=== PATIENT | female | born 1965 | race Caucasian/White ===

== ENCOUNTER 2017-10-01 08:32 | Emergency (ER) | payer BC ==
[2017-10-01 08:49] VITALS: BP 115/86
--- NOTE | 2017-10-01 08:54 | UC ---
Throat Pain/Nasal Cory HPI - HPI Summary HPI Summary: Pt presents with congestion and sore throat x 3 days. Pt state she thought it was her allergies. This am had a temp 100.4 - so wanted to be checked for strep. Pt did not take any med for fever. Has has been taking zyrtec and allergy vaccination. Pt does not take decongestant. Pt has been using Afrin - today is day #3 - pt report temp relief. 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 No known strep however Pt just completed period Pt's medications reviewed this visit. - History of Current Complaint Chief Complaint: UCRespiratory Stated Complaint: ST/FEVER/COUGH Time Seen by Provider: 10/01/17 08:51 Hx Obtained From: Patient Hx Last Menstrual Period: 04/2013 Onset/Duration: Gradual Onset Severity: Mild Pain Intensity: 2 Pain Scale Used: 0-10 Numeric Related History: Seasonal Allergies - Allergies/Home Medications Allergies/Adverse Reactions: Allergies Allergy/AdvReac Type Severity Reaction Status Date / Time sulfamethoxazole Allergy Rash Verified 10/01/17 08:43 [From Bactrim] trimethoprim [From Bactrim] Allergy Rash Verified 10/01/17 08:43 PMH/Surg Hx/FS Hx/Imm Hx Previously Healthy: Yes - Surgical History Surgical History: Yes Surgery Procedure, Year, and Place: Hysterectomy, 2012. Bladder Sling, 2008. C -Sections, 1997 2000 - Family History Known Family History: Positive: None - Social History Occupation: Employed Full-time Lives: With Family Alcohol Use: None Substance Use Type: None Smoking Status (MU): Former Smoker Type: Cigarettes Amount Used/How Often: Some Day Smoker Have You Smoked in the Last Year: No When Did the Patient Quit Smoking/Using Tobacco: 1984 - Immunization History Most Recent Influenza Vaccination: February 2014 Review of Systems Constitutional: Negative Skin: Negative Eyes: Negative ENT: Ear Ache, Sinus Congestion Respiratory: Negative Cardiovascular: Negative All Other Systems Reviewed And Are Negative: Yes Physical Exam Triage Information Reviewed: Yes Appearance: Well-Appearing, Well-Nourished, Other: - nasal congestion Vital Signs: Initial Vital Signs Temp 98.6 F 10/01/17 08:45 Pulse 86 10/01/17 08:45 Resp 18 10/01/17 08:45 BP 115/86 10/01/17 08:45 Pulse Ox 100 10/01/17 08:45 Vital Signs Reviewed: Yes Eye Exam: Normal Eyes: Positive: Conjunctiva Clear ENT: Positive: Other - right TM wnl left TM - obscurred by cerumen turbinates inflammed and boggy + yellow secretion no exudate, erythema uvula midline Dental Exam: Normal Neck exam: Normal Neck: Positive: Supple, Nontender, No Lymphadenopathy Respiratory Exam: Normal Respiratory: Positive: Chest non-tender, Lungs clear, Normal breath sounds, No respiratory distress, No accessory muscle use Cardiovascular Exam: Normal Cardiovascular: Positive: RRR, No Murmur, Pulses Normal Abdominal Exam: Normal Abdomen Description: Positive: Nontender Bowel Sounds: Positive: Present Musculoskeletal Exam: Normal Musculoskeletal: Positive: Strength Intact Neurological Exam: Normal Neurological: Positive: Alert Psychological: Positive: Normal Response To Family Skin Exam: Normal Throat Pain/Nasal Course/Dx - Course Course Of Treatment: pt with sore throat, congestion, PND x 3 days. pt reports temp this morning -self resolved. pt with neg strep throat. Pt with left cerumen impaction. will irrigate. recommend flonase. decongestion. motrin/ apap. secretion precaution. return precaution. pt comfortable and in agreement with plan - Differential Dx/Diagnosis Provider Diagnoses: allergic rhinitis. URI. cerumen impaction, left Discharge - Sign-Out/Discharge Documenting (check all that apply): Discharge/Admit/Transfer - Discharge Plan Condition: Stable Disposition: HOME Patient Education Materials: Allergic Rhinitis (ED), Pharyngitis (ED), Cerumen Impaction (ED) Referrals: Radha Cleary MD [Primary Care Provider] - Additional Instructions: - Stay well hydrated. Drink plenty of non-alcoholic, non-caffinated beverages. - Alternate ibuprofen (Advil, Motrin) 600mg and Tylenol every 3 hours for pain or fever. Take with food. Do NOT take for more than 4-5 days. - These infections are spread by secretions - do NOT share eating or drinking utensils - clean items you share with other people such as cell phones, computer mouse, TV remote, computer tablets,etc. Once you start to feel better, change your toothbrush and your pillowcase. - okay to take over the counter decongestant and cough medication - get plenty of restful sleep. - it is recommended you take nasal spray as instructed - okay to take over the counter decongestant with your other meds - contact your doctor or return with questions or concerns - Billing Disposition and Condition Condition: STABLE Disposition: HOME
== END 2017-10-01 09:37 | disposition home or self-care (01) ==
LOC: UCCORT 08:32
DX: J30.9 Allergic rhinitis, unspecified (principal); J06.9 Acute upper respiratory infection, unspecified; H61.22 Impacted cerumen, left ear; Z87.891 Personal history of nicotine dependence; Z88.2 Allergy status to sulfonamides
CPT/HCPCS: 87651; 99213; G0463

== ENCOUNTER 2018-02-06 13:37 | Emergency (ER) | payer BC ==
--- OUTSIDE RECORDS SUMMARY | 2018-02-06 15:39 | XMS REPORT ---
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 Payers Type Date Identification Numbers Payment Provider Subscriber Commercial Policy Number: [id number] [facility] Commercial Christie Hoover PayID: [id number] [address] [address] [place] [address] Problems Date Description Provider Status Onset: 06/21/2005 Generalized anxiety disorder Radha Cleary MD Active Onset: 11/09/2004 Premenstrual tension syndrome Radha Cleary MD Active Onset: 11/09/2004 Migraine without aura, not refractory Radha Cleary MD Active Onset: 11/09/2004 Allergic rhinitis due to pollen Gregory Cortes DO Active Onset: 04/11/2017 Mild intermittent asthma Radha Cleary MD Active Family History Date Family Member(s) Problem(s) Comments Mother Thyroid Disease Maternal Grandmother Cancer, Colon Social History Type Date Description Comments Marital Status Lives With Son lives with her half of the week Lives With Alone 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 ETOH Use Occasionally consumes alcohol Smoking Patient is a former smoker General Hx Text Allergies, Adverse Reactions, Alerts Date Description Reaction Status Severity Comments 06/18/2014 Bactrim active Medications Medication Date Status Form Strength Qnty SIG Indications Ordering Provider Azithromycin 02/01 Hx Tablets 250mg 6tabs 2 tablets J01.90 Frank by mouth Alfredo, - on day 1 DO 02/06 then tablet on days 2-5 Buspirone HCL 07/05 Active Tablets 10mg 90tab 1 by mouth F41.1 s doug Garcia MD times a day Proair HFA Active Aerosol 108(90Bas 2 puffs Unknown /0000 e) every 4 mcg/Act hours as needed for cough or sob Fluconazole 04/11 Hx Tablets 150mg 1tabs 1 by mouth N76.0 x 1 dose MD Radha - 07/05 Buspirone HCL 04/11 Hx Tablets 10mg 30tab 1 po every F41.1 s hs MD Radha - 07/05 Azithromycin 09/24 Hx Tablets 250mg 6tabs 2 by mouth J06.9 Digiovann /2016 on day 1 a, - and 1 by Dee Dee, 04/11 mouth day 2-5 Azithromycin 07/15 Hx Tablets 250mg 6tabs 2 by mouth J01.90 Radha duong MD - then 1 by 09/20 daily x 4 more days Phenazopyridine 05/21 Hx Tablets 200mg 6tabs 1 by mouth R30.0 Digiovann HCL three a, - times a Dee Dee, 05/23 day for 2 days Diflucan 08/29 Hx Tablets 150mg 1tabs 1 by mouth x 1 dose MD Radha - 08/30 Azithromycin 06/18 Hx Tablets 250mg 6tabs 2 by mouth 461.8 todayRadha MD - then 1 by 06/23 daily x 4 more days Azithromycin 09/27 Hx Tablets 250mg 6tabs 2 tabs po x 1 dose MD Radha - on the 06/18 first day of treatment, then 1 tab po daily x 4 days. Nasonex 09/27 Hx Suspension 50mcg/Act 51gm 2 sprays alma Garcia MD - nostril qd 02/05 Ventolin HFA 07/05 Hx Aerosol 108mcg/Ac 3unit 2 puffs t s q4h prn MD Radha - 07/05 Sumatriptan 11/07 Hx Tablets 50mg 9tabs take 1 Evin tablet by MD Radha - mouth 02/05 every hours if needed Meclizine HCL 01/08 Hx Tablets 25mg 50tab 1 po qid Sebastian s aquiles Jenkins, - dizziness DO 02/05 Montelukast 10/05 Hx Tablets 10mg 90tab 1 po qhs Evin raysa Garcia MD - 07/15 Immunizations CPT Code Status Date Vaccine Reaction Lot # [id number] Given 02/14/2017 Afluria Imunization 34489 Given 02/08/2014 Afluria Or Fluvirin Flu Vac Intramuscular 17607 Given 06/22/2012 Tdap (Adacel) Ages 7 And Above Only VIS DATE 80410 Given 01/06/2012 Afluria Or Fluvirin Flu Vac Intramuscular 14076 Given 02/23/2010 Afluria Or Fluvirin Flu Vac Intramuscular 84960 Given 04/24/2009 Afluria Or Fluvirin Flu Vac Intramuscular 23932 Given 03/31/2005 Afluria Or Fluvirin Flu Vac Intramuscular 44216 Given 03/31/2005 Afluria Or Fluvirin Flu Vac Intramuscular 92477 Given 05/16/1996 Tetanus And Diptheria Toxoids For Adult Use-preservative free Vital Signs Date Vital Result Comment 02/01/2018 Body Temperature 99.0 F Weight 118.00 lb Heart Rate 72 /min BP Systolic 120 mmHg BP Diastolic 72 mmHg Respiratory Rate 18 /min Height 62 inches 5'2" BMI (Body Mass Index) 21.6 kg/m2 07/05/2017 Weight 125.00 lb Heart Rate 76 /min BP Systolic 120 mmHg BP Diastolic 68 mmHg Respiratory Rate 18 /min Height 62 inches 5'2" (07/15/16 BMI (Body Mass Index) 22.9 kg/m2 04/11/2017 Weight 133.00 lb Heart Rate 76 /min BP Systolic 112 mmHg BP Diastolic 78 mmHg Respiratory Rate 18 /min Height 62 inches 5'2" (07/15/16 BMI (Body Mass Index) 24.3 kg/m2 09/20/2016 Body Temperature 98.5 F Weight 123.00 lb Heart Rate 72 /min BP Systolic 120 mmHg BP Diastolic 78 mmHg Respiratory Rate 18 /min Height 62 inches 5'2" (07/15/16 BMI (Body Mass Index) 22.5 kg/m2 07/15/2016 Body Temperature 99.1 F Weight 120.00 lb Heart Rate 76 /min BP Systolic 130 mmHg BP Diastolic 70 mmHg Respiratory Rate 18 /min Height 62 inches 5'2" (07/15/16 O2 % BldC Oximetry 98 % BMI (Body Mass Index) 21.9 kg/m2 04/01/2016 Weight 120.00 lb Heart Rate 76 /min BP Systolic 122 mmHg BP Diastolic 70 mmHg Respiratory Rate 18 /min Height 62 inches 5'2" (02/06/16) BMI (Body Mass Index) 21.9 kg/m2 02/06/2016 Body Temperature 97.9 F Weight 118.00 lb Heart Rate 66 /min BP Systolic 120 mmHg BP Diastolic 76 mmHg Respiratory Rate 18 /min Height 62 inches 5'2" (02/06/16) BMI (Body Mass Index) 21.6 kg/m2 05/21/2015 Body Temperature 98.9 F Weight 119.00 lb Heart Rate 78 /min BP Systolic 112 mmHg BP Diastolic 70 mmHg Respiratory Rate 18 /min Height 62.25 inches 5'2.25" BMI (Body Mass Index) 21.6 kg/m2 06/18/2014 Body Temperature 100.5 F Weight 122.00 lb Heart Rate 100 /min BP Systolic 120 mmHg BP Diastolic 80 mmHg Respiratory Rate 18 /min Height 62.25 inches 5'2.25" O2 Saturation Level with Exercise 96 % BMI (Body Mass Index) 22.1 kg/m2 09/27/2013 Body Temperature 99.7 F Weight 125.00 lb Heart Rate 87 /min BP Systolic 118 mmHg BP Diastolic 70 mmHg Respiratory Rate 18 /min Height 62.25 inches 5'2.25" 09/21/2013 Weight 125.00 lb Heart Rate 74 /min BP Systolic 110 mmHg BP Diastolic 80 mmHg Respiratory Rate 18 /min Height 62.25 inches 5'2.25" 07/05/2013 Weight 127.00 lb Heart Rate 76 /min BP Systolic 100 mmHg BP Diastolic 72 mmHg Respiratory Rate 16 /min Height 62.25 inches 5'2.25" 03/26/2013 Weight 120.00 lb Heart Rate 68 /min BP Systolic 122 mmHg BP Diastolic 82 mmHg Respiratory Rate 16 /min Height 62.25 inches 5'2.25" (Done On 05/25/12) 01/02/2013 Weight 126.00 lb Heart Rate 76 /min BP Systolic 110 mmHg BP Diastolic 70 mmHg Respiratory Rate 16 /min Height 62.25 inches 5'2.25" (Done On 05/25/12) 11/22/2012 Weight 122.00 lb Heart Rate 72 /min BP Systolic 100 mmHg BP Diastolic 72 mmHg Respiratory Rate 16 /min Height 62.25 inches 5'2.25" (Done On 05/25/12) 11/07/2012 Heart Rate 64 /min BP Systolic 120 mmHg BP Diastolic 80 mmHg Respiratory Rate 16 /min Height 62.25 inches 5'2.25" (Done On 05/25/12) 10/12/2012 Weight 121.00 lb Heart Rate 88 /min BP Systolic 106 mmHg BP Diastolic 80 mmHg Respiratory Rate 16 /min Height 62.25 inches 5'2.25" (Done On 05/25/12) 07/20/2012 Weight 115.00 lb Heart Rate 72 /min BP Systolic 110 mmHg BP Diastolic 70 mmHg Respiratory Rate 16 /min Height 62.25 inches 5'2.25" (Done On 05/25/12) 06/22/2012 Weight 119.00 lb Heart Rate 80 /min BP Systolic 120 mmHg BP Diastolic 70 mmHg Respiratory Rate 16 /min Height 62.25 inches 5'2.25" (Done On 05/25/12) 05/25/2012 Weight 123.00 lb Heart Rate 68 /min BP Systolic 126 mmHg BP Diastolic 80 mmHg Respiratory Rate 16 /min Height 62.25 inches 5'2.25" 05/04/2012 Body Temperature 100.4 F Weight 122.00 lb Heart Rate 88 /min BP Systolic 112 mmHg BP Diastolic 72 mmHg Respiratory Rate 18 /min Height 62.5 inches 5'2.50" (Done On 02/14/12) O2 % BldC Oximetry 97 % 05/02/2012 Body Temperature 98.6 F Weight 123.19 lb Heart Rate 90 /min BP Systolic 122 mmHg BP Diastolic 86 mmHg Respiratory Rate 16 /min Height 62.5 inches 5'2.50" 02/2012 O2 % BldC Oximetry 99 % 02/14/2012 Body Temperature 99.1 F Weight 122.38 lb Heart Rate 72 /min BP Systolic 116 mmHg BP Diastolic 80 mmHg Respiratory Rate 18 /min Height 62.5 inches 5'2.50" 02/201208/05/2010 Weight 139.00 lb Heart Rate 68 /min BP Systolic 120 mmHg BP Diastolic 80 mmHg Respiratory Rate 16 /min Height 62.25 inches 5'2.25" 06/24/2010 Body Temperature 99.6 F Was 102 At Home Took Motrin Weight 143.00 lb Heart Rate 80 /min BP Systolic 112 mmHg BP Diastolic 70 mmHg Respiratory Rate 14 /min 03/27/2010 Body Temperature 97.9 F Weight 146.00 lb Heart Rate 88 /min BP Systolic 124 mmHg BP Diastolic 86 mmHg Respiratory Rate 18 /min 02/23/2010 BP Systolic 102 mmHg BP Diastolic 70 mmHg 02/23/2010 Weight 143.00 lb Heart Rate 68 /min BP Systolic 128 mmHg BP Diastolic 82 mmHg Respiratory Rate 16 /min 11/14/2009 Heart Rate 68 /min BP Systolic 102 mmHg BP Diastolic 70 mmHg Respiratory Rate 16 /min 10/15/2009 Weight 140.00 lb Per PT Heart Rate 78 /min BP Systolic 112 mmHg BP Diastolic 80 mmHg Respiratory Rate 18 /min 10/07/2009 Body Temperature 98.5 F Weight 141.00 lb Heart Rate 72 /min BP Systolic 120 mmHg BP Diastolic 80 mmHg Respiratory Rate 16 /min Height 62.25 inches 5'2.25" 04/14/2009 Heart Rate 72 /min BP Systolic 110 mmHg BP Diastolic 72 mmHg Respiratory Rate 16 /min 01/08/2009 Body Temperature 97.6 F Heart Rate 72 /min BP Systolic 112 mmHg LEFT BP Diastolic 72 mmHg LEFT Respiratory Rate 15 /min 01/03/2009 Weight 136.00 lb Heart Rate 68 /min BP Systolic 110 mmHg BP Diastolic 74 mmHg Respiratory Rate 16 /min 09/19/2008 Weight 131.00 lb Heart Rate 76 /min BP Systolic 114 mmHg BP Diastolic 60 mmHg Respiratory Rate 16 /min 08/05/2008 Body Temperature 98.5 F Heart Rate 76 /min BP Systolic 122 mmHg BP Diastolic 76 mmHg Respiratory Rate 16 /min O2 % BldC Oximetry 98 % 07/15/2008 Heart Rate 80 /min BP Systolic 114 mmHg BP Diastolic 80 mmHg Respiratory Rate 16 /min 07/01/2008 Heart Rate 76 /min BP Systolic 110 mmHg BP Diastolic 74 mmHg Respiratory Rate 16 /min Height 62.5 inches 5'2.50" 05/10/2008 Body Temperature 98.3 F Heart Rate 70 /min BP Systolic 114 mmHg BP Diastolic 72 mmHg Respiratory Rate 20 /min Height 62 inches 5'2" 02/26/2008 Weight 134.00 lb Heart Rate 76 /min BP Systolic 112 mmHg BP Diastolic 70 mmHg Respiratory Rate 18 /min Height 62 inches 5'2" 01/11/2008 Heart Rate 72 /min BP Systolic 110 mmHg BP Diastolic 80 mmHg Respiratory Rate 16 /min Height 62 inches 5'2" 12/25/2007 Weight 134.00 lb Heart Rate 72 /min BP Systolic 114 mmHg BP Diastolic 68 mmHg Respiratory Rate 16 /min Height 62 inches 5'2" 07/28/2007 Weight 136.00 lb Heart Rate 68 /min BP Systolic 104 mmHg BP Diastolic 68 mmHg Respiratory Rate 16 /min Height 62 inches 5'2" 06/30/2007 Weight 138.00 lb Heart Rate 68 /min BP Systolic 114 mmHg BP Diastolic 70 mmHg Respiratory Rate 18 /min Height 62 inches 5'2" 05/19/2007 Heart Rate 84 /min BP Systolic 130 mmHg BP Diastolic 86 mmHg Respiratory Rate 16 /min Height 62 inches 5'2" 04/25/2007 Weight 137.00 lb Heart Rate 72 /min BP Systolic 110 mmHg BP Diastolic 66 mmHg Respiratory Rate 16 /min Height 62 inches 5'2" 03/24/2007 Body Temperature 97.9 F Weight 137.00 lb Heart Rate 72 /min BP Systolic 108 mmHg BP Diastolic 70 mmHg Respiratory Rate 16 /min Height 62 inches 5'2" 08/25/2006 Weight 136.00 lb Heart Rate 76 /min BP Systolic 116 mmHg BP Diastolic 84 mmHg Respiratory Rate 16 /min Height 62 inches 5'2" 05/12/2006 Body Temperature 97.8 F Weight 138.00 lb Heart Rate 84 /min BP Systolic 112 mmHg BP Diastolic 82 mmHg Respiratory Rate 18 /min Height 62 inches 5'2" 03/23/2006 Heart Rate 72 /min BP Systolic 116 mmHg BP Diastolic 80 mmHg Respiratory Rate 16 /min Height 62 inches 5'2" 11/01/2005 Weight 138.00 lb Heart Rate 78 /min BP Systolic 116 mmHg BP Diastolic 74 mmHg Respiratory Rate 18 /min Height 62 inches 5'2" 08/20/2005 Weight 140.00 lb Heart Rate 78 /min BP Systolic 104 mmHg BP Diastolic 64 mmHg Respiratory Rate 18 /min Height 62 inches 5'2" 07/20/2005 Heart Rate 70 /min BP Systolic 104 mmHg BP Diastolic 70 mmHg Respiratory Rate 16 /min Height 62 inches 5'2" 07/06/2005 Heart Rate 72 /min BP Systolic 114 mmHg BP Diastolic 74 mmHg Respiratory Rate 18 /min Height 62 inches 5'2" 06/21/2005 Heart Rate 76 /min BP Systolic 102 mmHg BP Diastolic 68 mmHg Respiratory Rate 14 /min Height 62 inches 5'2" 04/22/2005 Weight 134.00 lb Heart Rate 72 /min BP Systolic 116 mmHg BP Diastolic 76 mmHg Respiratory Rate 16 /min Height 62 inches 5'2" 04/09/2005 Body Temperature 98.6 F Weight 134.00 lb Heart Rate 96 /min BP Systolic 114 mmHg LEFT BP Diastolic 80 mmHg LEFT Height 62 inches 5'2" 03/19/2005 Body Temperature 98.4 F Weight 134.00 lb Heart Rate 88 /min BP Systolic 114 mmHg BP Diastolic 72 mmHg Respiratory Rate 20 /min Height 62 inches 5'2" 01/11/2005 Weight 137.00 lb Heart Rate 80 /min BP Systolic 118 mmHg BP Diastolic 76 mmHg Respiratory Rate 18 /min Height 62 inches 5'2" 11/09/2004 Weight 127.00 lb Heart Rate 88 /min BP Systolic 122 mmHg BP Diastolic 80 mmHg Respiratory Rate 16 /min Height 62 inches 5'2" 10/29/2004 Body Temperature 99.2 F Weight 128.00 lb Heart Rate 90 /min BP Systolic 108 mmHg BP Diastolic 80 mmHg Respiratory Rate 18 /min Results Test Date Test Result H/L Range Note 230 Ua Routine 11/26/2016 Ua PH 7.0 1 5.0-7.5 Ua Specifici [place] 1.010 1 1.003-1.030 Ua Urobilinogen 0.2 E.U./dL 0.0-1.0 CBC With Auto Diff 02/20/2016 White Blood Count 8.0 K/uL 3.1-10.7 1 Red Blood Count 4.64 M/uL 3.90-5.40 1 Hemoglobin 15.4 gm/dL 11.6-15.8 1 Hematocrit 45.7 % 36.0-46.1 1 Mean Cell Volume 98.5 fl 80.9-99.0 1 Mean Corpuscular HGB 33.2 pg High 25.9-32.7 1 Mean Corpuscular HGB Conc 33.7 g/dL 30.8-34.3 1 Platelet Count 304 K/uL 155-360 1 Red Cell Distri Width SD 46.4 fl 3-47 1 Red Cell Distri Width %CV 13.1 % 11.7-14.4 1 Mean Platelet Volume 10.1 fL 8.9-12.4 1 Neut% 67.5 % 40.4-72.8 1 Lymph % 23.3 % 17.0-46.1 1 [place] % 6.9 % 4.3-13.2 1 Eo% 1.9 % 0.0-6.6 1 Bas% 0.4 % 0.0-1.1 1 Neut# 5.39 K/uL 1.8-7.0 1 Lymph # 1.86 K/uL 1.8-7.0 1 [place] # 0.55 K/uL 0.3-0.9 1 Eos # 0.15 K/uL 0.0-0.5 1 Baso # 0.03 K/uL 0.0-0.1 1 @[facility] Pat Id: [id number] 1 @[facility] Req #: [id number] 1 CMP, Comp Metabolic Panel 02/20/2016 Glucose 85 mg/dL 74-106 1 BUN 9 mg/dL 7-18 1 Creatinine 0.9 mg/dL 0.6-1.3 1 Glom Filtration Rate, Estimate >60 mL/min >60 1 If >60 mL/min >60 1, 2 BUN/Creat 10.0 ratio 1 Sodium 139 mmol/L 136-145 1 Potassium 4.1 mmol/L 3.5-5.1 1 Chloride 106 mmol/L 98-107 1 Carbon Dioxide 29 mmol/L 21-32 1 Anion Gap 4 mEq/L Low 8-16 1 Calcium 8.5 mg/dL 8.5-10.1 1 Total Protein 6.9 g/dL 6.4-8.2 1 Albumin 3.6 g/dL 3.4-5.0 1 Globulin 3.3 g/dL 1.9-4.3 1 Alb/Glob 1.1 ratio 1 Bilirubin,Total 0.6 mg/dL 0.2-1.0 1 Sgot/Ast 11 U/L Low 15-37 1, 3 SGPT/Alt 17 U/L 12-78 1 Alkaline Phosphatase 58 U/L 45-117 1 @[facility] Pat Id: [id number] 1 @[facility] Req #: [id number] 1 Is Patient Fasting? Fasting 1 TSH 02/20/2016 Thyroid Stim Hormone 1.40 uIU/mL 0.30-4.20 1 @[facility] Pat Id: [id number] 1 @[facility] Req #: [id number] 1 Is Patient Fasting? Fasting 1 Lipid Panel 02/20/2016 Cholesterol 151 mg/dL <200 1, 4 Triglycerides 114 mg/dL <150 1, 5 HDL Cholesterol 74 mg/dL >40 1, 6 LDL-Cholesterol 54 mg/dL < 100 1, 7 @[facility] Pat Id: [id number] 1 @[facility] Req #: [id number] 1 Is Patient Fasting? Fasting 1 Treponema Antibody 02/20/2016 Treponema pallidum Nonreactive Nonreactive 1, 8 [place] antibody @[facility] Pat Id: [id number] 1 @[facility] Req #: [id number] 1 Antibody Detection 02/20/2016 Antibody Detection Nonreactive Nonreactive 1, 9 -[facility] CP @[facility] Pat Id: [id number] 1 @[facility] Req #: [id number] 1 Laboratory test 02/06/2016 Urine Culture Microbiology res <SEE 10 finding NOTE> GC/Chlamydia By Dna 02/06/2016 Chlamydia by Dna NEGATIVE Negative Probe Probe GC by Dna Probe NEGATIVE Negative Laboratory test 05/21/2015 Urine Culture Microbiology res <SEE 11 finding NOTE> GC/Chlamydia By Dna 05/21/2015 Chlamydia by Dna NEGATIVE Negative Probe Probe GC by Dna Probe NEGATIVE Negative Urine HCG (Qualitative) 06/08/2014 Urine HCG (Qualitative) NEGATIVE Negative 12 Laboratory test finding 01/02/2013 TSH 1.40 uIU/ml 0.50-6.00 Vitamin B12 324.0 pg/mL 200.0-900.0 Vitamin D 37.0 ng/mL 30.0-100.0 Laboratory test finding 11/07/2012 Cytology Pap See Note 13 Laboratory test finding 05/25/2012 % Baso. 0.7 % 0.0-2.0 % Eos. 1.0 % 0.0-4.0 % Lymph 48 % High 20-44 % [place] 5.2 % 2.0-10.0 % [place] 45 % Low 50-70 A/G Ratio 1.6 ratio Low 1.6-2.2 Absolute Baso. 0.1 K/ul 0.0-0.3 Absolute Eos. 0.1 K/ul 0.0-0.5 Absolute Lymph. 3.7 K/ul 0.8-4.8 Absolute [place]. 0.4 K/ul 0.1-1.0 Absolute [place]. 3.42 K/ul 2.05-7.63 Albumin 4.3 g/dL 3.5-5.0 Alk. Phos. 47.0 U/L 30.0-126.0 Alt 12.0 U/L 9.0-52.0 Anion Gap 9.0 mmol/L Low 10.0-20.0 Ast 17.0 U/L 14.0-36.0 BUN 14.0 mg/dL 7.0-18.0 BUN/Creat Ratio 17.5 ratio 12.0-20.0 Calcium 8.9 mg/dL 8.7-10.5 Chloride 104.0 mmol/L 98.0-107.0 Co2 27.0 mmol/L 22.0-30.0 Creatinine-Serum 0.8 mg/dL 0.7-1.2 Globulin 2.7 g/dL 2.7-4.3 Glucose 86.0 mg/dL 75.0-110.0 HCT 42.8 % 37.0-51.0 HGB 14.4 Gm/dl 12.0-16.0 MCH 31.1 pg 26.0-32.0 MCHC 33.6 g/dL 31.0-36.0 MCV 92.7 Fl 80.0-97.0 MPV 6.3 fL 6.0-10.0 PLT 395 K/ul 140-440 Potasium 3.8 mmol/L 3.6-5.0 RBC 4.6 M/ul 4.2-6.3 RDW 11.2 % Low 11.5-14.5 Sodium 140.0 mmil/L 137.0-145.0 TSH 1.49 uIU/ml 0.50-6.00 Total Bilirubin 0.5 mg/dL 0.2-1.3 Total Protein 7.0 g/dL 6.3-8.2 WBC 7.6 K/ul 4.1-10.9 eGFR 84.1 mi/minper1.7 14 Laboratory test finding 05/04/2012 Throat Culture Complete See Note 15 Laboratory test finding 02/14/2012 Culture Throat See Note 16 Laboratory test finding 06/24/2010 Culture Throat See Note 17 Laboratory test finding 03/27/2010 Culture Throat See Note 18 Laboratory test finding 04/30/2009 HCG, Quant < 2.0 mIU/mL 19 Lipid Panel 04/14/2009 Chol/HDL Ratio 3.0 20 Cholesterol 195 mg/dL 50-199 HDL Cholesterol 65 mg/dL 29-86 LDL 112 mg/dL 20-129 Triglycerides 92 mg/dL 30-249 VLDL Cholesterol 18 mg/dL Laboratory test finding 04/14/2009 A/G Ratio 1.6 1.0-2.2 Albumin 4.6 g/dL 3.5-5.0 Alkaline Phosphatase 59 U/L 30-126 Alt 14 U/L 9-52 Ast 22 U/L 14-36 BUN 10 mg/dL 7-18 BUN/CR Ratio 11.8 Ratio Low 12-20 Bas% 0.2 % 0.0-1.1 Baso # 0.0 K/uL 0.0-0.1 Calcium 9.6 mg/dL 8.7-10.5 Carbon Dioxide 33 mmol/L High 22-30 Chloride 102 mmol/L 98-107 Creatinine, Serum 0.9 mg/dL 0.7-1.2 Eo% 1.4 % 0.0-6.6 Eos # 0.1 K/uL 0.0-0.5 Globulin 2.8 g/dL 2.7-4.3 Glucose 78 mg/dL 65-105 Hematocrit 42.7 % 36.0-46.1 Hemoglobin 14.4 gm/dL 11.6-15.8 Lymph # 4.0 K/uL High 0.8-3.4 Lymph % 43.1 % 17.0-46.1 Mean Cell Volume 94.7 fl 80.9-99.0 Mean Corpuscular HGB 31.9 pg 25.9-32.7 Mean Corpuscular HGB Conc 33.7 g/dL 30.8-34.3 Mean Platelet Volume 10.0 fL 8.9-12.4 [place] # 0.6 K/uL 0.3-0.9 [place] % 6.3 % 4.3-13.2 Neut# 4.6 K/uL 1.0-7.0 Neut% 49.0 % 40.4-72.8 Platelet Count 303 K/uL 155-360 Potassium 3.8 mmol/L 3.6-5.0 Red Blood Count 4.51 M/uL 3.90-5.40 Red Cell Distri Width %CV 12.8 % 11.7-14.4 Red Cell Distri Width SD 43 fl 3-47 Sodium 142 mmol/L 137-145 TSH 2.959 uIU/ml 0.50-6.00 Total Bilirubin 0.3 mg/dL 0.2-1.3 Total Protein 7.3 g/dL 6.3-8.2 White Blood Count 9.3 K/uL 3.1-10.7 Laboratory test finding 09/03/2008 Pathology Exam (See Note) 21 Laboratory test finding 09/02/2008 Pathology Exam (See Note) 22 Laboratory test finding 08/30/2008 Pathology Exam (See Note) 23 Laboratory test finding 08/05/2008 Culture Throat Normal Throat FL <See 24 Note> Laboratory test finding 05/10/2008 Culture Urine <see comment> 25 Laboratory test finding 02/26/2008 A/G Ratio 1.6 1.0-2.2 Absolute Basophils 0.03 K/ul 0.0-0.3 Absolute Eosinophils 0.16 K/ul 0.0-0.5 Absolute Lymphocytes 2.75 K/ul 0.8-4.8 Absolute Monocytes 0.35 K/ul 0.1-1.0 Absolute Neutrophils 4.46 K/ul 2.05-7.63 Albumin 4.3 g/dL 3.5-5.0 Alkaline Phosphatase 61 U/L 30-126 Alt 23 U/L 9-52 Ast 28 U/L 14-36 BUN 13 mg/dL 7-18 BUN/CR Ratio 17.3 Ratio 12-20 Basophil 0.4 % 0-2 Calcium 9.2 mg/dL 8.7-10.5 Carbon Dioxide 26 mmol/L 22-30 Chloride 103 mmol/L 98-107 Creatinine, Serum 0.7 mg/dL 0.7-1.2 Eosinophil 2.1 % 0-4 Estradiol,Serum 320 pg/mL 26 FSH 3.3 mIU/mL 27 Globulin 2.8 g/dL 2.7-4.3 Glucose 78 mg/dL 65-105 Hematocrit 40.4 % 37.0-51.0 Hemoglobin 13.9 GM/dl 12.0-16.0 Luteinizing Hormone 5.9 mIU/mL 28 Lymphocytes 35.5 % 20-44 MCH 31.6 pg 26.0-32.0 MCHC 34.4 g/dL 31.0-36.0 MCV 92 FL 80-97 Monocytes 4.5 % 2-10.0 Neutrophils 57.5 % 50-70 Platelet Count 308 K/ul 140-440 Potassium 4.1 mmol/L 3.6-5.0 RBC 4.40 M/ul 4.2-6.3 RDW 11.5 % 11.5-14.5 Sodium 138 mmol/L 137-145 TSH 2.119 uIU/ml 0.50-6.00 Total Bilirubin 0.4 mg/dL 0.2-1.3 Total Protein 7.1 g/dL 6.3-8.2 WBC 7.8 K/ul 4.1-10.9 Laboratory test finding 06/02/2007 Urine Culture <see comment> 29 Laboratory test finding 04/25/2007 A/G Ratio 1.7 1.0-2.2 Albumin 4.9 g/dL 3.5-5.0 Alkaline Phosphatase 64 U/L 38-126 Alt 27 U/L 9-52 Ast 20 U/L 14-36 BUN 14 mg/dL 7-18 BUN/CR Ratio 17.5 Ratio 12-20 Bas% 0.5 % 0.1-1.0 Baso # 0.1 K/uL 0.1-0.2 Calcium 9.4 mg/dL 8.7-10.5 Carbon Dioxide 27 mmol/L 22-30 Chloride 100 mmol/L 98-107 Creatinine, Serum 0.8 mg/dL 0.7-1.2 Eo% 1.6 % 0.0-5.0 Eos # 0.2 K/uL 0.0-0.5 Globulin 2.9 g/dL 2.7-4.3 Glucose 80 mg/dL 65-105 Hematocrit 41.4 % 34.0-46.0 Hemoglobin 14.7 gm/dL 11.5-15.5 [place]# 0.2 0.0-1.5 [place]% 1.9 % 0.0-4.0 Lymph # 3.8 K/uL 1.2-4.0 Lymph % 37.1 % 17.0-56.0 Mean Cell Volume 92.1 fL 80.0-96.0 Mean Corpuscular HGB 32.7 pg 27.0-33.0 Mean Corpuscular HGB Conc 35.5 g/dL 31.7-36.0 Mean Platelet Volume 6.3 fl Low 6.6-10.6 [place] # 0.4 K/uL 0.0-0.6 [place] % 3.8 % 0.0-10.0 Neut# 5.7 K/uL 1.8-7.0 Neut% 55.1 % 33.0-73.0 Platelet Count 319 K/uL 150-400 Potassium 3.7 mmol/L 3.6-5.0 Red Blood Count 4.50 M/uL 3.90-5.20 Red Cell Distri Width %CV 12.3 % 11.6-15.8 Sodium 139 mmol/L 137-145 TSH 1.997 uIU/ml 0.50-6.00 Total Bilirubin 0.7 mg/dL 0.2-1.3 Total Protein 7.8 g/dL 6.3-8.2 White Blood Count 10.3 K/uL 3.4-10.5 Laboratory test finding 03/31/2006 Culture Urine No Growth: Final <See Note > 30 Urine Bacteria Few None Seen Urine Bilirubin - Dipstick Negative Negative Urine Blood Trace Negative Urine Clarity Clear Clear Urine Color Yellow Yellow Urine Epithelial Cells Few None Seen Urine Glucose - Dipstick Negative Negative m Urine Hyaline Cast 0-2 None Seen Urine Ketone Negative Negative m Urine Leuk Esterase Negative Negative Urine Mucus Moderate None Seen Urine Nitrite - Dipstick Negative Negative Urine PH 5.5 Low 6.5-7.5 Urine Protein - Dipstick Negative Negative m Urine RBC 0-2 Negative r Urine Specific [place] 1.020 1.010-1.030 Urine Urobilinogen - Dipstick 0.2 E.U./dL 0.2-1.0 Urine WBC None Seen Negative w Laboratory test finding 03/23/2006 Culture Urine <see comment> 31 Laboratory test finding 03/23/2006 A/G Ratio 1.5 1.0-2.2 Albumin 4.1 g/dL 3.5-5.0 Alkaline Phosphatase 69 U/L 38-126 Alt 29 U/L 9-52 Amylase 46 U/L 18-98 Ast 21 U/L 14-36 BUN 12 mg/dL 7-18 BUN/CR Ratio 15.0 Ratio 12-20 Calcium 9.1 mg/dL 8.7-10.5 Carbon Dioxide 29 mmol/L 22-30 Chloride 99 mmol/L 98-107 Creatinine, Serum 0.8 mg/dL 0.7-1.2 Globulin 2.8 g/dL 2.7-4.3 Glucose 86 mg/dL 65-105 Lipase,Serum 236 U/L 114-286 Potassium 4.1 mmol/L 3.6-5.0 Sodium 137 mmol/L 137-145 Total Bilirubin 0.4 mg/dL 0.2-1.3 Total Protein 6.9 g/dL 6.3-8.2 Laboratory test finding 04/09/2005 Culture Urine <see comment> 32 1 Z11.3 N30.10 F41.9 Z13.220 2 Note: Persistent reduction for 3 months or more in an eGFR <60 mL/min/1.73 m2 defines CKD. Patients with eGFR values >/=60 mL/min/1.73 m2 may also have CKD if evidence of persistent proteinuria is present. The original MDRD equation for estimated GFR is not valid for patients less than 18 years of age. Additional information may be found at www.[facility].org. 3 Values below the stated reference ranges of AST and ALT can be seen in normal populations. Clinical correlation is suggested. 4 Reference Guidelines*: Desirable: ........... < 200 mg/dL Borderline High: ..... 200-239 mg/dL High: ................ >=240 mg/dL * The National Cholesterol Education Program (NCEP) 5 Reference Guidelines*: Normal: ............. < 150 mg/dL Borderline High: .... 150-199 mg/dL High: ............... 200-499 mg/dL Very High: .......... > 500 mg/dL * Source: National Cholesterol Education Program (NCEP) 6 Reference Guidelines*: Low HDL: ..... < 40 mg/dL Normal: ..... 40-60 mg/dL Desirable: ... > 60 mg/dL *The National Cholesterol Education Program(NCEP) 7 Reference Guidelines*: Optimal:........... <100 mg/dL Near Optimal....... 100-129 mg/dL Borderline High.... 130-159 mg/dL High............... 160-189 mg/dL Very High.......... >=190 mg/dL * Source: National Cholesterol Education Program (NCEP) 8 Please Note: A nonreactive test result does not exclude the possibility of exposure to, or infection with syphilis. T. pallidum antibodies may be undetectable in some stages of the infection and in some clinical conditions. 9 NOTE: A NON-REACTIVE RESULT INDICATES THAT HIV-1 AND HIV-2 ANTIBODIES HAVE NOT BEEN FOUND IN THIS PATIENT SPECIMEN. A NON-REACTIVE RESULT, HOWEVER, DOES NOT PRECLUDE PREVIOUS EXPOSURE OF INFECTION WITH HIV. * [place] STATE LAW PROHIBITS THE REDISCLOSURE OF THIS RESULT * * TO ANY UNAUTHORIZED DEMOCRAT. * 10 Microbiology results SOURCE URINE FINAL RESULT No growth 11 Microbiology results SOURCE MIDU FINAL RESULT No growth 12 FIRST MORNING SPECIMENS GENERALLY CONTAIN THE HIGHEST CONCENTRATION OF HCG AND ARE RECOMMENDED FOR EARLY DETECTION OF . 13 Cytology Laboratory [address] [place] [address], [address] [place] [address] CYTOLOGY REPORT Name: Christie Hoover : 1965 (Age: 47) Sex: F Location: [facility] Med. Rec. # [id number] Date Collected: 11/07/2012 Billing #: [id number] Date Received : 11/07/2012 Alternate #: [id number] Requisition # [id number] Physician(s): RADHA CLEARY MD Source of Specimen: ENDOCERVICAL/ECTOCERVICAL THIN PREP Clinical Information : Date of Last Menstrual Period: None Provided Treatment History: Ablation: several years ago-endometrial Other Clinical Conditions: Additional comment: has been spotting irregularly over the last few months Specimen Adequacy: SATISFACTORY FOR EVALUATION. ADEQUATE ENDOCERVICAL/TRANSFORMATION ZONE. General Categorization : NEGATIVE FOR INTRAEPITHELIAL LESION OR MALIGNANCY. Descriptive Evaluation: REACTIVE CELLULAR CHANGES ASSOCIATED WITH INFLAMMATION. jib Electronic Signature Coy Obrien MD Reported: 11/09/2012 Also seen by: JALEEL Murphy (ASCP) Cytology Outreach [facility] ICD-9 Code(s) V72.31 A: 616.9 14 For -[place]el[place] patients multiply result by 1.180 15 NORMAL THROAT BARRON 16 NORMAL THROAT BARRON 17 Organism 1 ! BETA STREPTOCOCCUS GROUP A QUANTITY ! MANY RECOMMENDED THERAPY : ! PENICILLIN OR AMPICILLIN. ALTERNATIVE THERAPY: ! ERYTHROMYCIN MAY BE USED IN PENICILLIN ALLERGIC ! INDIVIDUALS 18 NORMAL THROAT BARRON 19 APPROXIMATE GESTATIONAL AGE AND BHCG RANGE 0-1 WEEK.......................0 -50 mIU/mL 1-2 WEEKS....................40-300 mIU/mL 2-3 WEEKS.................100-1,000 mIU/mL 3-4 WEEKS.................500-6,000 mIU/mL 1-2 MONTHS............5,000-200,000 mIU/mL 2-3 MONTHS...........10,000-100, 000 mIU/mL 2nd TRIMESTER..........3,000-50,000 mIU/mL 3rd TRIMESTER..........1,000-50,000 mIU/mL 20 Normal Range: Male: <4.98 Female: <4.45 21 CYTOLOGY SCREENER Screened by: JALEEL Joseph(ASCP) FINAL INTERPRETATION "URINE #3, VOIDED": CELL GROUPINGS, REACTIVE FAVORED. VAGINAL CONTAMINATION AND BACTERIA. URINE PREPARATION TECHNIQUES CYTOLOGY URINE SPECIMEN (TECH) PREPARATION: 1 CYTOBUCKETS 1 CYTOSPIN SLIDE PREPARATION(S) A TOTAL OF 1 SLIDE PREPARATIONS WERE MADE ON THIS URINE SPECIMEN. NON-BLOOD BANK CREDIT CLERK URINE SMEARS SCREENED PREPARED IN THE CYTOLOGY LABORATORY IS/ARE 1 NON-BLOOD BANK CREDIT CLERK SPECIMEN SMEAR(S). GROSS Received in the Cytology Laboratory is -20ml of clear, deep yellow colored fluid in an appropriately labeled specimen container. CE ----- KAMERON Palmer MD 09/04/08 ----- 22 CYTOLOGY SCREENER Screened by: JALEEL Joseph(ASCP) FINAL INTERPRETATION "URINE #2, VOIDED": NO MALIGNANT OR DYSPLASTIC CELLS SEEN. VAGINAL CONTAMINATION. URINE PREPARATION TECHNIQUES CYTOLOGY URINE SPECIMEN (TECH) PREPARATION: 1 CYTOBUCKETS 1 CYTOSPIN SLIDE PREPARATION(S) A TOTAL OF 1 SLIDE PREPARATIONS WERE MADE ON THIS URINE SPECIMEN. NON-BLOOD BANK CREDIT CLERK URINE SMEARS SCREENED PREPARED IN THE CYTOLOGY LABORATORY IS/ARE 1 NON-BLOOD BANK CREDIT CLERK SPECIMEN SMEAR(S). GROSS Received in the Cytology Laboratory is -40ml of clear, yellow colored fluid in an appropriately labeled specimen container. CC ----- MAREN Varghese MD 09/03/08 ----- 23 CYTOLOGY SCREENER Screened by: JALEEL Joseph(ASCP) FINAL INTERPRETATION "URINE #1, VOIDED": CELL GROUPINGS, REACTIVE FAVORED. VAGINAL CONTAMINATION. URINE PREPARATION TECHNIQUES CYTOLOGY URINE SPECIMEN (TECH) PREPARATION: 1 CYTOBUCKETS 1 CYTOSPIN SLIDE PREPARATION(S) A TOTAL OF 1 SLIDE PREPARATIONS WERE MADE ON THIS URINE SPECIMEN. NON-BLOOD BANK CREDIT CLERK URINE SMEARS SCREENED PREPARED IN THE CYTOLOGY LABORATORY IS/ARE 1 NON-BLOOD BANK CREDIT CLERK SPECIMEN SMEAR(S). GROSS Received in the Cytology Laboratory is -80ml of clear, yellow colored fluid in an appropriately labeled specimen container. ----- Signed MAREN CHOI MD 09/02/08 ----- 24 NORMAL THROAT BARRON 25 COLONY COUNT ! 20,000-30,000 CFU/ml Organism 1 ! URETHRAL BARRON 26 NORMALLY MENSTRUATING FEMALES: Follicular Phase:...............39-189 pg/mL Mid-Cycle Peak:.................94-508 pg/mL Luteal Phase:...................48-309 pg/mL POSTMENOPAUSAL FEMALE:..............0- 41 pg/mL 27 NORMALLY MENSTRUATING FEMALES: Follicular Phase:...............4-13 mIU/mL Mid-Cycle Peak:.................5-22 mIU/mL Luteal Phase:...................2 -13 mIU/mL Postmenopausal Female:........20-138 mIU/mL 28 NORMALLY MENSTRUATING FEMALES: Follicular Phase.............1-18 mIU/mL Mid -Cycle Peak.............24-105 mIU/mL Luteal Phase...............0.4-20 mIU/mL Postmenopausal .............15-62 mIU/mL 29 COLONY COUNT ! 5,000 - 10,000 CFU/ml Organism 1 ! URETHRAL BARRON 30 NO GROWTH: FINAL REPORT 31 COLONY COUNT ! 40,000-50,000 CFU/ml Organism 1 ! URETHRAL BARRON 32 COLONY COUNT ! 5,000 - 10,000 CFU/ml Organism 1 ! URETHRAL BARRON Procedures Date CPT Code Description Status 07/15/2016 04638 Measure Blood Oxygen Level Single Determination Completed 07/26/2015 Mammogram Completed 07/04/2014 05811 Mammography Bilateral Completed 06/18/2014 65025 Measure Blood Oxygen Level Single Determination Completed 05/04/2012 73571 Measure Blood Oxygen Level Single Determination Completed 05/02/2012 14164 Measure Blood Oxygen Level Single Determination Completed 04/14/2009 59574 Electrocardiogram Complete Completed 01/10/2009 88526 Mammography Unilateral Completed 08/05/2008 98770 Measure Blood Oxygen Level Single Determination Completed 01/11/2005 29029 Mammography Unilateral Completed Encounters Type Date Location Provider CPT E/M Dx Office Visit 07/05/2017 2:45p [facility] [place] [address] F41.1 Office Visit 04/11/2017 2:00p [facility] [place] [address] Z00.00 F41.1 G43.009 J30.1 Z12.11 N76.0 Office Visit 09/20/2016 2:45p [facility] [address] J06.9 Office Visit 07/15/2016 1:45p [facility] [place] [address] J01.90 Office Visit 04/01/2016 1:15p [facility] [place] [address] Z00.00 J30.1 J45.20 N32.9 Office Visit 02/06/2016 4:00p [facility] [place] [address] R30.0 Z11.3 N30.10 Z13.220 F41.9 Office Visit 05/21/2015 3:30p [facility] Dee Dee Pham [employer] [address]1326 R30.0 Z11.3 Office Visit 06/18/2014 3:45p [facility] [place] [address] 461.8 Plan of Care Future Appointment(s):04/10/2018 9:35 am - Schedule, Laboratory at [facility]2017 2:00 pm - Radha Cleary MD at [facility]02/01/2018 - Starr Adan, STANJ01.90 Acute sinusitis, unspecifiedNew Medication:Azithromycin 250 mgComments:Push fluidsTylenol/motrin as needed for fever/painAzithromycin as prescribedSinus rinse as neededCall with any questions or concernsFollow up:Prn
[2018-02-06 15:46] VITALS: BP 135/94
--- NOTE | 2018-02-06 16:15 | UC ---
General HPI - HPI Summary HPI Summary: Patient states that she went to her primary care provider's office this past Tuesday and was diagnosed with a sinus infection and treated with a Z-Tony and she states the sinuses improved but she continued to have a fever with chills and body aches. She followed up again with a phone call in the primary care changed her antibiotic to amoxicillin. She presents today because she has noted some swelling on the front of her neck and difficulty with swallow which she describes as a pain but not actual trouble with passage of food or liquids. Patient also notes that the swollen area is tender to touch. In addition she reports a 4 pound weight loss but admits that she has not been eating or drinking per her routine with this illness. She denies any associated vomiting diarrhea cough or short of breath and has no other complaints. Given the swelling to the anterior neck, I did ask patient felt palpitations, chest pain as well as anxiety or feeling weak and she denied all. - History of Current Complaint Chief Complaint: UCGeneralIllness Stated Complaint: ST/SINUS COMPLAINT Time Seen by Provider: 02/06/18 15:46 Hx Obtained From: Patient Hx Last Menstrual Period: 04/2013 Onset/Duration: Gradual Onset Timing: Constant Pain Intensity: 0 Associated Signs & Symptoms: Positive: Fever - Allergy/Home Medications Allergies/Adverse Reactions: Allergies Allergy/AdvReac Type Severity Reaction Status Date / Time sulfamethoxazole Allergy Rash Verified 02/06/18 15:46 [From Bactrim] trimethoprim [From Bactrim] Allergy Rash Verified 02/06/18 15:46 PMH/Surg Hx/FS Hx/Imm Hx Previously Healthy: Yes - Surgical History Surgical History: Yes Surgery Procedure, Year, and Place: Hysterectomy, 2012. Bladder Sling, 2008. C -Sections, 1997 2000 - Family History Known Family History: Positive: None - Social History Occupation: Employed Full-time Lives: With Family Alcohol Use: None Substance Use Type: None Smoking Status (MU): Former Smoker Type: Cigarettes Amount Used/How Often: Some Day Smoker Have You Smoked in the Last Year: No When Did the Patient Quit Smoking/Using Tobacco: 1984 - Immunization History Most Recent Influenza Vaccination: February 2014 Vaccination Up to Date: Yes Review of Systems Constitutional: Fever, Chills Skin: Negative Eyes: Negative ENT: Negative Respiratory: Negative Cardiovascular: Negative Gastrointestinal: Negative Genitourinary: Negative Motor: Negative Neurovascular: Negative Musculoskeletal: Myalgia Neurological: Negative Psychological: Negative Is Patient Immunocompromised?: No All Other Systems Reviewed And Are Negative: Yes Physical Exam Triage Information Reviewed: Yes Appearance: Well-Appearing Vital Signs: Initial Vital Signs Temp 100.0 F 02/06/18 15:39 Pulse 94 02/06/18 15:39 Resp 18 02/06/18 15:39 BP 135/94 02/06/18 15:39 Pulse Ox 100 02/06/18 15:39 Vital Signs Reviewed: Yes Eyes: Positive: Conjunctiva Clear ENT: Positive: Pharynx normal, TMs normal. Negative: Nasal congestion, Nasal drainage Neck: Positive: Supple, No Lymphadenopathy, Other: - Patient's thyroid is swollen and she notes tenderness with gentle palpation but no nodules appreciated. Respiratory: Positive: Lungs clear, Normal breath sounds Cardiovascular: Positive: RRR, No Murmur, Pulses Normal Abdomen Description: Positive: Nontender, No Organomegaly, Soft Bowel Sounds: Positive: Present Musculoskeletal: Positive: ROM Intact, No Edema Neurological: Positive: Alert Psychological: Positive: Age Appropriate Behavior Skin Exam: Normal Course/Dx - Course Course Of Treatment: Patient's exam is consistent with an acute thyroiditis; however, this is not a thyroid storm. I placed a call to her primary care provider and was able to speak with Dr. Radha Cleary who was kind enough to take my call despite not being weatherization and housing inspector for us. Reviewed the patient's history and physical exam. She requests that I treat the patient with a single dose of metoprolol 50 mg here. She advised the patient may continue with the amoxicillin and that she will see her in the office as scheduled 2 PM tomorrow. She requested I review thyroid storm with the patient and advised patient to go to the ER for any signs or symptoms of thyroid storm or worsening. We did discuss ordering thyroid studies however our application manager to the hospital has already left for today thus we're unable to do the labs this evening. They will do those in the office tomorrow. Peripheral primary care's request, we did review thyroid storm. I stressed the need for going to the emergency room immediately for any change or worsening and gave her hyperthyroid discharge instructions. Patient also advised that she child continue the antibiotic as directed. Patient is comfortable with this plan. - Differential Dx - Multi-Symptom Provider Diagnoses: Acute Thyroiditis Discharge - Sign-Out/Discharge Documenting (check all that apply): Patient Departure All imaging exams completed and their final reports reviewed: No Studies - Discharge Plan Condition: Stable Disposition: HOME Patient Education Materials: Hyperthyroidism (ED) Referrals: Radha Cleary MD [Primary Care Provider] - Additional Instructions: DIAGNOSIS: ACUTE THYROIDITIS. FOLLOW UP DR CLEARY 2AM TOMORROW SCHEDULED. GO TO THE ER FOR ANY TYPE OF WORSENING. - Billing Disposition and Condition Condition: STABLE Disposition: Home
[2018-02-06] MEDS ORDERED: Metoprolol Tartrate TAB* 25 MG PO ONE (16:22)
--- NOTE | 2018-02-08 11:02 | UC ---
- Progress Note Progress Note: called pt. she f/u with dr cleary the next day. they did labs, tx with beta minerva and pt has f/u with Dr Lao. fever improved and feeling better. Discharge - Sign-Out/Discharge Documenting (check all that apply): Patient Departure All imaging exams completed and their final reports reviewed: No Studies - Discharge Plan Condition: Stable Disposition: HOME Patient Education Materials: Hyperthyroidism (ED) Referrals: Radha Cleary MD [Primary Care Provider] - Additional Instructions: DIAGNOSIS: ACUTE THYROIDITIS. FOLLOW UP DR CLEARY 2AM TOMORROW SCHEDULED. GO TO THE ER FOR ANY TYPE OF WORSENING. - Billing Disposition and Condition Condition: STABLE Disposition: Home
== END 2018-02-06 16:39 | disposition home or self-care (01) ==
LOC: UCCORT 13:37
DX: E06.0 Acute thyroiditis (principal); Z88.1 Allergy status to other antibiotic agents; Z87.891 Personal history of nicotine dependence
CPT/HCPCS: 99212; G0463